=== PATIENT | female | born 1980 | race Caucasian/White ===

== ENCOUNTER 2016-09-23 09:15 | Emergency (ER) | payer OTHER, MEDICAID ==
[~2016-09-23] VITALS: Ht 170.2 cm; Wt 63.5 kg
[2016-09-23] MEDS ORDERED: PRENATAL FORMU1 EAC3 PO (09:29)
== END 2016-09-23 10:05 | disposition left against medical advice (07) ==
LOC: ED 09:15
DX: O20.0 Threatened abortion (principal); O99.331 Smoking (tobacco) complicating pregnancy, first trimester; F17.200 Nicotine dependence, unspecified, uncomplicated; Z79.899 Other long term (current) drug therapy; Z3A.00 Weeks of gestation of pregnancy not specified
CPT/HCPCS: 99284